=== PATIENT | female | born 1945 | race Caucasian/White ===

== ENCOUNTER 2020-05-24 17:08 | Emergency (ER) | payer MEDICARE, OTHER, SELFPAY ==
[2020-05-24 17:42] VITALS: BP 158/85; PULSE 87; RESP 16; TEMP 36.8; O2SAT 100; BMI 20.4
--- NOTE | 2020-05-24 18:34 | ED_ITS ---
HPI - Skin/Abscess/Foreign Bdy General Chief complaint: Skin/Abscess/Foreign Body Stated complaint: tick bite Time Seen by Provider: 05/24/20 18:00 Source: patient Mode of arrival: ambulatory Limitations: no limitations History of Present Illness HPI narrative: Patient presents to ED for left thigh tick bite. Patient states tick is presently still on the thigh. Patient denies any fever, chills, nausea, vomiting, body aches, weakness. Related Data Allergies Allergy/AdvReac Type Severity Reaction Status Date / Time No Known Allergies Allergy Verified 05/24/20 17:48 Review of Systems Review of Systems: Yes all other systems are reviewed and are negative Constitutional: Constitutional: Reports as per HPI and Reports no additional constitutional complaints Eyes: Eyes: Reports as per HPI and Reports no additional eye complaints ENT: Reports system reviewed and no additional complaints, except as documented and Reports as per HPI Cardiovascular: Cardiovascular: Reports as per HPI and Reports no additional cardiovascular complaints Respiratory: Respiratory: Reports as per HPI and Reports no additional respiratory complaints Gastrointestinal: Gastrointestinal: Reports as per HPI and Reports no additional gastrointestinal complaints Musculoskeletal: Musculoskeletal: Reports no additional musculoskeletal complaints and Reports as per HPI Neurologic: Reports system reviewed and no additional complaints, except as documented and Reports as per HPI Psychiatric: Psychiatric: Reports no additional psychiatric complaints and Reports as per HPI PMF Past Medical History Medical History (Updated 05/24/20 @ 18:41 by TOM Moss) No known health problems Social History Social History Alcohol intake: never Smoking Status: Current every day smoker Smoked in Last 30 Days: No Substance Use Type: Marijuana Advance Directives: No Advance Directives Information Provided: Yes Physical Exam Vital Signs: Vital Signs: Last Vital Signs Temp 98.3 F 05/24/20 17:42 Pulse 87 05/24/20 17:42 Resp 16 05/24/20 17:42 BP 158/85 H 05/24/20 17:42 Pulse Ox 100 05/24/20 17:42 Body Mass Index 20.4 Const: General: cooperative, healthy appearing, comfortable, no acute distress and well developed Orientation/consciousness: patient oriented x3 HENMT: Head: Yes normal to inspection Eyes: General: appearance normal, both eyes and all related structures Visual Kee: normal visual kee by confrontation Neck: Neck: Yes normal visual inspection and Yes full ROM Chest: Chest palpation & inspection: normal inspection of the chest, normal palpation of entire chest wall and no localized rib tenderness Resp: Effort & Inspection: normal respiratory effort and able to speak in complete sentences Cardio: Jugular venous distension: no JVD Heart sounds: S1 normal heart sound present and S2 normal heart sound present GI: Inspection: Yes normal to inspection and No abdominal wall ecchymosis : General: No CVA tenderness and Yes no CVA tenderness Back/Spine/Pelvis: Back: no CVA tenderness, No CVA tenderness and No back tenderness Skin: Other: Positive for left thigh circular area of erythema with tick in the middle. Neuro: General: patient oriented x3, gait normal and CN's II-XI intact bilaterally Cranial nerves: Yes CN's II-XII intact bilaterally Extrem: Other: Positive for left thigh tick bite with surrounding erythema. General: Yes normal to inspection and Yes full ROM Psych: Appearance: grossly normal and well kempt Course Course Course Narrative: Tick will be removed and patient given prophylactic doxycycline. Reevaluation(s) Reevaluation #1: Viscous lidocaine was placed on the tick and then was removed. Patient given 1 dose of doxycycline 200 mg for prophylaxis as per up-to-date. Time: 18:40 MDM - Skin/Abscess/Foreign Bdy MDM Narrative Medical decision making narrative: tick bite Discharge Plan Discharge Clinical Impression: Tick bite Patient Disposition: Home, Self-Care Instructions: Tick Bite (ED) Additional Instructions: return to the ED for swelling of lower extremity, worsening redness, fever, chills, weakness, diarrhea, nausea, vomiting, or any other concerning symptoms. Referrals: Branden Marie MD [Primary Care Provider] - 2 days ( Left thigh tick bite. Tick removed. Doxycycline 200 mg given p.o. as prophylaxis) Interventions: ED Discharge Assessment Last Done: 05/24/20 18:59 Discharge Date/Time: 05/24/20 19:03 Print Language: Upper Sorbian
== END 2020-05-24 19:03 | disposition home or self-care (01) ==
PROVIDERS: Emergency Provider Emergency Medicine; PCP Internal Medicine
DX: S70.362A Insect bite (nonvenomous), left thigh, initial encounter (principal); M79.652 Pain in left thigh; T63.481A Toxic effect of venom of other arthropod, accidental (unintentional), initial encounter; Y92.9 Unspecified place or not applicable
CPT/HCPCS: 99284

== ENCOUNTER 2020-07-24 13:27 | Outpatient (REF) | payer MEDICARE, OTHER, SELFPAY ==
--- NOTE | 2020-07-24 13:32 | MM_ITS ---
EXAMINATION: MM SCREENING DIGITAL BREAST TOMOSYNTHESIS, BILATERAL CLINICAL INFORMATION: Left lumpectomy for breast cancer 1997. Due for yearly exam. COMPARISON: Mammography: 07/02/2019, 06/26/2018, 05/26/2017 TECHNIQUE: Digital breast tomosynthesis is performed in both the craniocaudal and mediolateral oblique views along with computer-aided detection (CAD). Synthesized 2D images are generated from the tomosynthesis. FINDINGS: There are scattered areas of fibroglandular density (ACR BI-RADS breast composition Category b). There are post therapy changes on the left with reduced breast size and chronic scarring. Neither breast shows interval mass or architectural abnormality or abnormal calcifications. No significant changes from prior exams. MM/MM tomosynthesis screening BI IMPRESSION: No significant changes from prior studies. ASSESSMENT: BI-RADS 2: Benign RECOMMENDATION: Routine annual mammography screening. This patient's information was entered into a reminder system with a target due date for their next mammogram.
== END 2020-07-24 13:28 | disposition home or self-care (01) ==
LOC: HO.MAMMO 13:27
PROVIDERS: Visit Provider Internal Medicine
DX: Z12.31 Encounter for screening mammogram for malignant neoplasm of breast (principal)
CPT/HCPCS: 77063; 77067

== ENCOUNTER 2020-07-28 13:53 | Outpatient (REF) | payer MEDICARE, MEDICAID, OTHER, SELFPAY ==
--- NOTE | 2020-07-28 15:16 | MHC.AU.P13 ---
Adult Audiological Evaluation Date of Visit: 07/28/20 Reason for Appointment: Audiological evaluation to monitor the status of Ms. Da Silva's hearing loss. She denies any significant changes to her hearing or medical history. She notes the hearing aids have been working well but are in need of maintenance. Previous Hearing Test Results: [facility], 01/01/2019- Mild sloping to profound sensorineural hearing loss in the right ear, profound hearing loss in the left ear. Medical History: Medical History: Unremarkable Medical History Medication List: Per physician order: simvastatin 40 mg 1x daily, calcium 500 + vitamin D 500 mg 2x daily, Aricept 5 mg 1x at bedtime, Vitamin D3 25 mcg Hearing Instrument History- Right Ear: Associate Dean Of [employer]: [employer] Model: Bolero V50-SP Serial Number: [id number] Battery Size: 13 Warranty: 04/20/2019 Dispensed By: [facility] Date of Fittin02/24/2016 Hearing Instrument History- Left Ear: Associate Dean [employer] Women: Phonak Model: CROS II-13 Serial Number: [id number] Battery Size: 13 Warranty: 04/20/2017 Dispensed By: [facility] Date of Fittin02/24/2016 Otoscopy: Right Ear: Unremarkable Left Ear: Unremarkable Tympanometry: Right Ear: Reduced Middle Ear Compliance (Type As) Left Ear: Normal Middle Ear System (Type A) Hearing Evaluation: Transducer(s) Used: Insert Earphones, Bone Conduction Method: Conventional Audiometry Stimuli Used: Pure Tones Right Ear: Description of Hearing: Mild sloping to profound sensorineural hearing loss from 250-8000 Hz. Left Ear: Description of Hearing: Profound hearing loss from 250-8000 Hz. Speech Recognition Threshold (SRT): Method Used: Monitored Live Voice Stimuli Used: Spondee Words Right Ear: 45 dBHL Left Ear: CNT due to degree of HL Word Discrimination: Method: Recorded Lists Word Lists Used: NU-6 Right Ear: 76% at 85 dBHL Left Ear: CNT due to degree of HL Comparison: Compared to most recent evaluation: Thresholds have worsened by 10-15 dBHL from 1996-8875 Hz in the right ear. All other thresholds remain stable. Recommendations: Recommendations: Audiological re-evaluation in one year. Recommendations (Other): Hearing aid maintenance performed today. Recommend hearing aid maintenance in 6 months. Diagnosis: Primary Diagnosis: H90.3 Bilateral Sensorineural Hearing Loss Services Performed: Services Performed: Comprehensive Audiological Evaluation (CPT 65151) Tympanometry (CPT 99933) Signature: Provider: Kaylyn Rodríguez, CCC-A
== END 2020-07-28 13:54 | disposition home or self-care (01) ==
LOC: HO.SH 13:53
PROVIDERS: Visit Provider Internal Medicine
DX: H90.3 Sensorineural hearing loss, bilateral (principal)
CPT/HCPCS: 92557; 92567

== ENCOUNTER 2020-10-24 12:19 | Emergency (ER) | payer MEDICARE, MEDICAID, OTHER, SELFPAY ==
[2020-10-24 13:26] VITALS: BP 139/70; PULSE 58; RESP 18; TEMP 36.6; O2SAT 100; BMI 18.7
--- NOTE | 2020-10-24 15:05 | ED.GENADULT ---
HPI - General Adult General Chief complaint: General Medical Stated complaint: tick bite Time Seen by Provider: 10/24/20 14:18 Source: patient and family Mode of arrival: ambulatory Limitations: no limitations History of Present Illness HPI narrative: 75 yo female with no medical history presents with multiple tick bites. She states she noticed an area on her left elbow that was swollen, tender and slightly red about 1 week ago with a possible tick bite. She also reports an area on her right inner thigh this morning. Her friend encouraged her to come to the ER for evaluation. She denies fever, chills, rash, headache, chest pain. MD complaint: tick bites. Onset (ago): week(s) (1) Location: left, upper extremity and lower extremity Radiation: non-radiation Severity: moderate Severity scale (1-10): 3 Quality: aching Pain Consistency: intermittent Relieving factors: none Exacerbating factors: none Associated symptoms: denies other symptoms Treatments prior to arrival: none Related Data Previous Rx's Medication Instructions Recorded doxycycline monohydrate 100 mg PO BID #42 cap 10/24/20 Allergies Allergy/AdvReac Type Severity Reaction Status Date / Time No Known Allergies Allergy Verified 05/24/20 17:48 Review of Systems Review of Systems: Constitutional: No Fever, No Chills Cardiovascular: No Chest Pain, No SOB Respiratory: No Cough, No Sputum Gastrointestinal: No Nausea, No Vomiting Musculoskeletal: No joint pain, No Myalgias Skin: +Skin Lesions, + rash Neuro: No Headache Psych: No Anxiety/Panic, No Depression Heme/Lymph: No Bruising, No Lymphadenopathy PMFSH Past Medical History Medical History (Updated 10/24/20 @ 15:08 by TOM Garcia) No known health problems Social History Social History Alcohol intake: never Smoking Status: Current every day smoker Substance Use Type: Marijuana Advance Directives: Yes Advance Directives Information Provided: No Advance Directives on File: No Physical Exam Vital Signs: Vital Signs: Last Vital Signs Temp 97.8 F 10/24/20 13:26 Pulse 58 10/24/20 13:26 Resp 18 10/24/20 13:26 BP 139/70 10/24/20 13:26 Pulse Ox 100 10/24/20 13:26 Body Mass Index 18.7 Appearance: Alert. Oriented X3. No acute distress. HEENT: normal inspection CVS: Normal heart rate and rhythm. Pulses normal. Respiratory: No respiratory distress. Lungs CTAB Skin: Skin warm and dry. Normal skin color. Normal skin turgor Extremities: left elbow with 4cm circular area of erythema with central small bite w/ induration, no area of clearing, no warmth, slight tenderness. normal ROM of elbow. NV Intact distally. Right inner thigh with engorged tick attached medically, removed intact, tick was still alive and moving Neuro: Oriented X 3. No motor deficit. No sensory deficit. Course Course Course Narrative: 75 yo female presenting with tick bites x2. Left elbow area with possible retained tick, will explore after local anesthesia given. Rash is not typical of ECM but there is some redness around the area. Will empirically treat given the bite was 7 days ago and could still be embedded in her skin. Live tick removed from her leg with unknown time on her skin. She was counseled on empiric treatment and the importance of follow up with her PCP next week for blood work and monitoring. Reevaluation(s) Reevaluation #1: No tick or foreign body able to be removed from left elbow. Will treat with doxycycline x3 weeks. Stable for d/c. Procedures Foreign Body Removal Time Out Performed: no Site: left and upper extremity Description of foreign body: insect Sedation/Analgesia: none Technique: incision made to facilitate removal Confirmed by:: patient report and palpation Complications: none Post-procedure exam: awake, alert Neurovascular: normal distal pulse, normal capillary fill and no change from pre-procedure Critical Care Time Critical Care Time Critical Care Time: No Discharge Plan Discharge Clinical Impression: Tick bite Qualifiers: Encounter type: initial encounter Qualified Code(s): W57.XXXA - Bitten or stung by nonvenomous insect and other nonvenomous arthropods, initial encounter Patient Disposition: Home, Self-Care Instructions: Lyme Disease (ED), Tick Bite (ED) Additional Instructions: You are being treated for probable Lyme Disease. It is very important you complete the entire course - which is 3 full weeks of treatment. Recommend following up with your doctor on Tuesday for blood work. In the future, it is important to do a full skin check each time you come inside after being outdoors. If you notice any ticks on you, take them off as SOON as possible. If you notice any worsening rashes or if you develop fever, chills, chest pain or any other concerning symptom come back to the ER for further evaluation. Prescriptions: New doxycycline monohydrate 100 mg capsule 100 mg PO BID Qty: 42 RF: 0 Discharge Date/Time: 10/24/20 15:15
[2020-10-24] MEDS: Lidocaine HCl 1%/Epi 1:100,000 20 ML VIAL INFILTRATI (15:12)
== END 2020-10-24 15:15 | disposition home or self-care (01) ==
PROVIDERS: Emergency Provider Emergency Medicine; PCP Internal Medicine
DX: S50.362A Insect bite (nonvenomous) of left elbow, initial encounter (principal); S70.361A Insect bite (nonvenomous), right thigh, initial encounter; W57.XXXA Bitten or stung by nonvenomous insect and other nonvenomous arthropods, initial encounter; F17.200 Nicotine dependence, unspecified, uncomplicated; F12.90 Cannabis use, unspecified, uncomplicated; Y93.9 Activity, unspecified; Y92.9 Unspecified place or not applicable; Y99.9 Unspecified external cause status
CPT/HCPCS: 24200; 99283; 99284

== ENCOUNTER 2020-11-11 09:21 | Outpatient (REF) | payer MEDICARE, MEDICAID, SELFPAY | END 2020-11-11 09:22 | disposition home or self-care (01) | LOC: HO.HAP 09:21 | PROVIDERS: Visit Provider Internal Medicine | DX: Z13.89 Encounter for screening for other disorder (principal) ==

== ENCOUNTER 2020-12-16 11:01 | Outpatient (REF) | payer SELFPAY | END 2020-12-16 11:02 | disposition home or self-care (01) | LOC: HO.HAP 11:01 | PROVIDERS: Visit Provider Internal Medicine | DX: Z46.1 Encounter for fitting and adjustment of hearing aid (principal); H90.3 Sensorineural hearing loss, bilateral | CPT/HCPCS: 99499 ==

== ENCOUNTER 2021-02-18 09:24 | Outpatient (REF) | payer SELFPAY | END 2021-02-18 09:25 | disposition home or self-care (01) | LOC: HO.HAP 09:24 | PROVIDERS: Visit Provider Internal Medicine | DX: Z13.89 Encounter for screening for other disorder (principal) ==

== ENCOUNTER 2021-04-23 15:19 | Outpatient (REF) | payer SELFPAY ==
--- NOTE | 2021-04-23 15:28 | MHC.AU.HFU ---
Hearing Instrument Follow-Up- Binaural Date of Visit: 04/23/21 Right Ear: Pharmacovigilance Specialist: Phonak Model: Bolero V50-SP Serial Number: [id number] Repair Warranty: 04/20/2019 Loss and Damage Warranty: 04/20/2019 Battery Size: 13 Color: Josy Red Tubing: Tube lock Type of Mold: Skeleton mold Dispensed By: [facility] Date of Fittin02/24/2016 Left Ear: Pharmacovigilance Specialist: Phonak Model: CROS II-13 Serial Number: [id number] Repair Warranty: 04/20/2017 Loss and Damage Warranty: 04/20/2017 Battery Size: 13 Tubing: Tube lock Type of Mold: Skeleton mold Dispensed By: [facility] Date of Fittin02/24/2016 Follow-Up Summary: Patient reports that she is not hearing from the right aid. Otoscopy revealed an infection ear canal with significant drainage and white discharge. Cleaned aid and mold thoroughly. Replaced tubing. Aid is working well post-cleaning. Patient had an infection at her last visit as well, and states that she was treated with ear drops. The infection has returned or persisted since that time. I recommend a consultation with otolaryngology, given that this appears to be a persistent, ongoing problem. Advised her that the aid will continue to frequently get clogged until the infection is cleared and the drainage and discharge subsides. Patient plans to go to an urgent care facility to have the infection treated REBECCA, but plans to follow-up with ENT as well. Recommendations: Recommendations: Hearing instrument maintenance in 6 months, or sooner if needed. Please contact our clinic with any questions or concerns. Patient will call if problems persist. Diagnosis Code(s): Primary Diagnosis: H90.3 Bilateral Sensorineural Hearing Loss Services Performed: LEGGETT Purchased through [facility] or Outside Vendor: LEGGETT Purchased Here Signature: Provider: Kaylyn Rodríguez, LIZETH-A
== END 2021-04-23 15:20 | disposition home or self-care (01) ==
LOC: HO.HAP 15:19
PROVIDERS: Visit Provider Internal Medicine
DX: Z46.1 Encounter for fitting and adjustment of hearing aid (principal); H90.3 Sensorineural hearing loss, bilateral
CPT/HCPCS: 99499

== ENCOUNTER 2021-06-22 09:24 | Outpatient (REF) | payer SELFPAY ==
--- NOTE | 2021-06-22 09:59 | MHC.AU.HFU ---
Hearing Instrument Follow-Up- Binaural Date of Visit: 06/22/21 Right Ear: Reel Assembler: Phonak Model: Bolero V50-SP Serial Number: [id number] Repair Warranty: 04/20/2019 Battery Size: 13 Color: Josy Red Tubing: Tube lock Type of Mold: Skeleton mold Dispensed By: [facility] Date of Fittin02/24/2016 Left Ear: Reel Assembler: Phonak Model: CROS II-13 Serial Number: [id number] ( Reports the aid is rarely used) Repair Warranty: 04/20/2019 Battery Size: 13 Tubing: Tube lock Type of Mold: Skeleton mold Dispensed By: [facility] Date of Fittin02/24/2016 Follow-Up Summary: Evelyne is accompanied by her daughter today. They report Evelyne went to the [facility] following her 04/23/21 appointment when right otitis externa was identified for at least the second time. She has not seen an ENT for treatment yet. Evelyne reports feedback from the right aid but is able to hear with the aid today. OTOSCOPY OF THE RIGHT EAR SHOW WHITE DRIED DISCHARGE AROUND THE PINNA WITH VISABLE WHITE DRAINAGE FROM THE CANAL. THE RIGHT CANAL IS VERY RED AND INFLAMMED/SWOLLEN. The inflammation is likely causing the feedback from the aid. The aid was cleaned and checked and amplifying. PATIENT PURCHASED ACCOUNTS RECEIVABLE PROCESSOR CHOICE EARMOLD SPRAY AND INSTRUCTED TO SPRAY THE EARMOLD AFTER REMOVING AID AND PRIOR TO INSERTION IN THE MORNING. ALSO ADVISED HER TO LEAVE THE AID OUT MUCH POSSIBLE UNTIL TREATED BY THE ENT. Recommendations: Hearing instrument maintenance in 6 months, or sooner if needed. Please contact our clinic with any questions or concerns. Patient will call if problems persist. Diagnosis Code(s): Primary Diagnosis: H90.3 Bilateral Sensorineural Hearing Loss Services Performed: Accessory Description: Popcorn Candy Maker Benjamín [place] $10.00 Signature: Provider: Kaylyn Solorzano, LIZETH-A
== END 2021-06-22 09:25 | disposition home or self-care (01) ==
LOC: HO.HAP 09:24
PROVIDERS: Visit Provider Internal Medicine
DX: Z46.1 Encounter for fitting and adjustment of hearing aid (principal); H90.3 Sensorineural hearing loss, bilateral
CPT/HCPCS: V5267

== ENCOUNTER 2021-07-29 14:56 | Outpatient (REF) | payer MEDICARE, MEDICAID, SELFPAY ==
--- NOTE | 2021-07-31 15:41 | MHC.AU.HFU ---
Hearing Instrument Follow-Up- Binaural Date of Visit: 07/29/21 Right Ear:Automobile Lights Assembler: Phonak Model: Bolero V50-SP Serial Number: [id number] Repair Warranty: 04/20/2019 Battery Size: 13 Color: Josy Red Tubing: Tube lock 07/29/2021 changed to #1 slim tube with large power dome as patient has lost weight and the standard earmold is very loose int he ear causing constant feedback Type of Mold: Skeleton mold Type of Wax Guard: Dispensed By: [facility] Date of Fittin02/24/2016 Left Ear: Automobile Lights Assembler: Phonak Model: CROS II-13 Serial Number: [id number] Repair Warranty: 04/20/2017 Battery Size: 13 Tubing: Tube lock Type of Mold: Skeleton mold Dispensed By: [facility] Date of Fittin02/24/2016 Follow-Up Summary: Patient has seen ENT twice since last visit and otitis externa was treated with ear drops and ointment with improvement. Continues to have constant feedback from the right aid as patient has lost weight and the mold is very loose. Changed to #1 slim tube with large power dome and reprogrammed right aid. No feedback while in office after this change. Discussed options: 1) If the current set is working, she may continue to use aids as set. 2) If she does not like the slim tube with power dome, or feedback problem continues, take impressions for new binaural standard earmolds. 3) Consider new CROS system as recommended by the ENT - Medical clearance and updated hearing test in the chart. Recommendations:Hearing instrument follow-up or maintenance as needed. Patient will call if problems persist. Diagnosis Code(s): Primary Diagnosis: H90.3 Bilateral Sensorineural Hearing Loss Signature: Provider: Bianca Solorzano, [facility]
== END 2021-07-29 14:57 | disposition home or self-care (01) ==
LOC: HO.HAP 14:56
PROVIDERS: Visit Provider Internal Medicine
DX: Z13.89 Encounter for screening for other disorder (principal)

== ENCOUNTER 2021-08-07 15:21 | Outpatient (REF) | payer MEDICARE, MEDICAID, SELFPAY ==
--- NOTE | ~2021-08-07 | MM_ITS ---
EXAMINATION: MM SCREENING DIGITAL BREAST TOMOSYNTHESIS, BILATERAL CLINICAL INFORMATION: Left lumpectomy for breast cancer 1997. Due for yearly. COMPARISON: Mammography: 07/24/2020, 07/02/2019, 06/26/2018, 05/26/2017 TECHNIQUE: Digital breast tomosynthesis is performed in both the craniocaudal and mediolateral oblique views along with computer-aided detection (CAD). Synthesized 2D images are generated from the tomosynthesis. Additional right MLO and exaggerated left CC views are provided. FINDINGS: There are scattered areas of fibroglandular density (ACR BI-RADS breast composition Category b). Breast tissue composition borders on heterogeneously dense. Parenchymal pattern is similar to prior study. There are post therapy changes on the left with stable scarring and mild reduced breast size. Scattered bilateral asymmetries are stable. There is no developing density or interval mass or architectural abnormality. No abnormal calcifications. A dermal lesion is again seen overlying the posterior upper right breast. No significant changes from prior studies. MM/MM tomosynthesis screening BI IMPRESSION: No significant changes from prior studies. ASSESSMENT: BI-RADS 2: Benign RECOMMENDATION: Routine annual mammography screening. This patient's information was entered into a reminder system with a target due date for their next mammogram.
== END 2021-08-07 15:22 | disposition home or self-care (01) ==
LOC: HO.MAMMO 15:21
PROVIDERS: PCP Internal Medicine; Visit Provider Internal Medicine
DX: Z12.31 Encounter for screening mammogram for malignant neoplasm of breast (principal)
CPT/HCPCS: 77063; 77067

== ENCOUNTER 2021-08-10 10:24 | Outpatient (REF) | payer MEDICARE, MEDICAID, SELFPAY | END 2021-08-10 10:25 | disposition home or self-care (01) | LOC: HO.HAP 10:24 | PROVIDERS: Visit Provider Internal Medicine | DX: Z13.89 Encounter for screening for other disorder (principal) ==

== ENCOUNTER 2021-08-14 13:55 | Outpatient (REF) | payer MEDICARE, MEDICAID, SELFPAY ==
[2021-08-14 15:31] LABS: Blood Urea Nitrogen 13 mg/dL (9-16); Estimated Glomerular Filt Rate > 60
== END 2021-08-14 13:56 | disposition home or self-care (01) ==
LOC: HO.LAB 13:55
PROVIDERS: PCP Internal Medicine; Visit Provider Psychiatry & Neurology Neurology
DX: D42.9 Neoplasm of uncertain behavior of meninges, unspecified (principal)
CPT/HCPCS: 36415; 82565; 84520

== ENCOUNTER 2021-08-20 16:44 | Outpatient (REF) | payer MEDICARE, MEDICAID, SELFPAY ==
--- NOTE | ~2021-08-20 | MR_ITS ---
EXAMINATION: MR BRAIN WITHOUT AND WITH CONTRAST CLINICAL INFORMATION: Multiple intracranial meningiomas. COMPARISON: Brain MRI 05/06/2015. TECHNIQUE: Multiplanar MR imaging of the brain was performed without and with contrast. A total of 4.5 mL Gadavist was utilized for this examination. FINDINGS: There is a large intraparenchymal hematoma within the left frontal lobe that measures approximately 6 cm in maximal transaxial dimension. The signal characteristics of the hematoma indicate that it is predominantly late subacute in age. The gradient recalled echo sequence demonstrates hemosiderin staining along the pial surfaces of the left cerebral hemisphere representing a small amount of adjacent subarachnoid blood. A small nearby subdural hematoma extends along the anterior margin of the left middle cranial fossa measuring approximately 0.4 cm in thickness. There is a margin of perilesional vasogenic edema within the left frontal lobe. Mass effect within the left supratentorial compartment causes 0.8 cm rightward subfalcine herniation measured at the level of the septum pellucidum. No uncal herniation or downward transtentorial herniation. No clear evidence of an underlying enhancing soft tissue mass is demonstrated at or adjacent to the hematoma on postcontrast imaging. There are however a few dome-shaped dural based masses over both cerebral convexities consistent with meningiomas. For instance there is a right convexity meningioma measuring 0.9 cm from base to apex which has remained stable when compared to prior imaging from 05/06/2015. A nearby slightly more superior dome-shaped lesion best visualized on coronal image 19 of 30 series 10 measures 0.6 cm from base to apex which also has remained stable. A few heavily calcified masses over right and left frontal convexities are also unchanged. Lateral and third ventricles are slightly enlarged and there is confluent T2 FLAIR signal hyperintensity surrounding the atria and occipital horns of the lateral ventricles suggesting transependymal flow of cerebrospinal fluid. No identifiable mass effect on the cerebral aqueduct. In addition there are scattered nonspecific foci of T2 FLAIR signal hyperintensity within the periventricular white matter and adriana that most likely represent a chronic manifestation of small vessel ischemia. No acute territorial infarct. There is however a small focus of restricted diffusion near the vertex best depicted on axial image 29 of 32 series 4. Intracranial arterial vascular flow voids are grossly maintained. There is no mastoid middle ear effusion. No active paranasal sinus disease. Globes and orbits are symmetric. MR/MR head/brain wo/w con IMPRESSION: There is a late subacute hematoma centered within the left frontal lobe and there is a small amount of nearby subarachnoid and subdural blood. No clear evidence of an underlying enhancing mass or vascular lesion. Possible diagnostic considerations include a posttraumatic hemorrhage, cortical vein thrombosis, or supratherapeutic anticoagulation. Other possible etiologies are not excluded and continued follow-up is recommended. Mass effect within the left supratentorial compartment causes regional sulcal effacement and 0.8 cm rightward midline shift measured at the septum pellucidum. There is relatively mild hydrocephalus with symmetric enlargement of the lateral ventricles and evidence of transependymal flow of cerebrospinal fluid. No identifiable mass effect on the cerebral aqueduct or foramina of [place]. Multiple enhancing dural based masses over both cerebral convexities, some of which are heavily calcified consistent with meningiomas have remained stable when compared to prior imaging from 05/06/2015. This critical result was discussed with Dr Anusha Frazier at 5:04 PM on 08/24/2021 and it was ascertained that the content and urgency of the report was understood at the time of direct communication.
== END 2021-08-20 16:45 | disposition home or self-care (01) ==
LOC: HO.MRI 16:44
PROVIDERS: PCP Internal Medicine; Visit Provider Psychiatry & Neurology Neurology
DX: D42.9 Neoplasm of uncertain behavior of meninges, unspecified (principal)
CPT/HCPCS: 70553; A9585

== ENCOUNTER 2021-08-28 09:25 | Outpatient (REF) | payer SELFPAY ==
--- NOTE | 2021-08-28 10:20 | MHC.AU.HFU ---
Hearing Instrument Follow-Up- Binaural Date of Visit: 08/28/21 [employer] Driver Used: Not Applicable Right Ear: Solution Designer: Phonak Model: Bolero V50-SP Serial Number: [id number] Repair Warranty: 04/20/2019 Loss and Damage Warranty: 04/20/2019 Service Plan: Battery Size: 13 Color: Josy Red Tubing: Dri_tube, no cement Type of Mold: #2 Skeleton, Medi-pavan, clear, dri tube, MENDOZA: dispensed Micro[employer]ic 08/18/2021 2V/I Dispensed By: [facility] Date of Fittin02/24/2016 Left Ear: Solution Designer: Phonak Model: CROS II-13 Serial Number: [id number] Repair Warranty: 04/20/2017 Loss and Damage Warranty: 04/20/2017 Battery Size: 13 Tubing: Dri-Tube Type of Mold: #2 Skeleton, Medi-pavan, clear, dri tube, MENDOZA: dispensed [employer] 08/18/2021 2V/I Dispensed By: [facility] Date of Fittin02/24/2016 Follow-Up Summary: Seen today to fit with new earmolds bilaterally and to return lost Cros (left side) piece that was found and returned to us. Biological check of Cros and Hearing aid was good. Replaced battery in right hearing aid as it was DOA. Earmold fit was good. Had daughter insert hearing aid. Recommend changing batteries every 7 days as patient isn't able to report any longer. Recommendations: Recommendations: Please contact our clinic with any questions or concerns. Recommendations (Other): Provide support remotely when able to - as family takes on more responsibility with the hearing aids may need fitting/troubleshooting support. Diagnosis Code(s): Primary Diagnosis: H90.3 Bilateral Sensorineural Hearing Loss Services Performed: Earmold (Quantity): 2 Signature: Provider: Bianca Delgadillo, FAAA
== END 2021-08-28 09:26 | disposition home or self-care (01) ==
LOC: HO.HAP 09:25
PROVIDERS: Visit Provider Internal Medicine
DX: Z46.1 Encounter for fitting and adjustment of hearing aid (principal); H90.3 Sensorineural hearing loss, bilateral
CPT/HCPCS: V5264